=== PATIENT | female | born 1950 | race Caucasian/White ===

== ENCOUNTER → 2017-04-09 | Outpatient (CLI) | payer BC ==
--- NOTE | 2017-04-09 13:48 | MAMMOGRAPHY REPORT ---
BILATERAL DIGITAL SCREENING MAMMOGRAM WITH CAD: 04/09/2017 CLINICAL HISTORY: Routine screening. Patient has no complaints. TECHNIQUE: Bilateral CC and MLO views were obtained. Current study was also evaluated with a Compute r Aided Detection (CAD) system. COMPARISON: Comparison is made to exams dated: 06/05/2015 mammogram, 03/03/2014 mammogram - [facility], and 12/24/2007. BREAST COMPOSITION: There are scattered areas of fibroglandular density in both breasts. FINDINGS: There are stable benign-appearing punctate microcalcifications in the right breast. No new suspicious mass, architectural distortion or cluster of microcalcifications is seen. IMPRESSION: ACR BI-RADS CATEGORY 1: NEGATIVE There is no mammographic evidence of malignancy. A 1 year screening mammogram is recommended. The pa tient will receive written notification of the results. Approximately 10% of breast cancers are not detected with mammography. A negative mammographic report should not delay biopsy if a clinically suggestive mass is present. Charmaine Shoemaker M.D. ay/:04/09/2017 13:36:30 [employer] Observer: Carmen CHAPARRO(R)(Vane)(BD), [facility] letter sent: Normal 1/2 BI-RADS Code: ACR BI-RADS Category 1: Negative
== END | disposition home or self-care (01) ==
LOC: C.MAMM 12:54
PROVIDERS: ATTEND Family Medicine
DX: Z12.31 Encounter for screening mammogram for malignant neoplasm of breast (principal); M85.851 Other specified disorders of bone density and structure, right thigh; M85.852 Other specified disorders of bone density and structure, left thigh

== ENCOUNTER 2021-02-23 11:38 | Inpatient (IN) ==
--- NOTE | 2021-02-23 12:34 | XRay Report ---
XR ankle RT 2V, XR tibia fibula RT 2V HISTORY: 70 years-old Female Extremity Trama acute pain of the right lower leg and ankle status post fall COMPARISON: None TECHNIQUE: 2 views of the right tibia and fibula with 2 views of the right ankle FINDINGS: ANKLE: There is an acute obliquely oriented fracture of the distal tibial diaphysis which demonstrates 12 mm lateral andr 3 mm posterior displacement. Mild cortical thickening of the distal fibula may reflect a healed fracture. Mild to moderate soft tissue swelling. The ankle mortise is well-maintained. No os teochondral defect. There is mild midfoot and hindfoot osteoarthritis with small plantar enthesophyte of the calcaneus. TIBIA/fibula: There is an acute obliquely oriented fracture involving the proximal metadiaphyseal fibula demonstrat ing 5 mm medial and 3 mm volar displacement. Acute fracture of the distal tibia as above. No addition al acute fracture or dislocation. IMPRESSION: Acute mildly displaced distal tibial and proximal fractures as above. ACT 112: Negative or not required by law. The above report was generated using voice recognition software. It may contain grammatical, syntax o r spelling errors. Electronically signed by: Angel Garcia M.D. 02/23/2021 12:33 PM
--- NOTE | 2021-02-23 12:41 | Emergency Department Note ---
History of Present Illness General Chief complaint: Ankle Pain Time Seen by Provider: 02/23/21 12:03 Mode of arrival: ambulatory Limitations: no limitations History of Present Illness Provider complaint: Right ankle injury Onset (ago): hour(s) Location: lower extremity Radiation: non-radiation Severity: moderate Pain Consistency: + constant Maximum Pain Intensity: 7 Current Pain Intensity: 7 Quality: + constant Relieved By: + none Exacerbated By: + movement Associated symptoms: + denies other symptoms Treatments prior to arrival: none This is a 70-year female presents the emergency department after an ankle injury at home. Patient states she had gotten food and water for her cats, and some of the water spilled outside the dish and she slipped on the water and fell, landing awkwardly on her right lower extremity. Patient denies any prior injury to the right knee, tib/fib, or ankle. Patient states she was feeling in her usual state of health prior to this, no preceding or prodromal symptoms to suggest near syncope or syncope. Patient states when she fell she did not hit her head or lose consciousness. Patient states she crawled to the door and called 911. Patient denies any numbness or tingling, denies any neck pain, back pain, or hip pain. Patient denies any concern for additional injury other than that to her right lower extremity. Patient does not use any antiplatelet or anticoagulation therapy. Pt seen during a time of high acuity and national emergency pandemic while wearing PPE. Home Medications Medication Instructions Recorded Confirmed Type Skyrizi 75 mg SUBCUT DIRECTED 02/23/21 02/23/21 History levothyroxine 75 mcg PO DAILY 02/23/21 02/23/21 History lisinopril 40 mg PO DAILY 02/23/21 02/23/21 History acetaminophen [Tylenol Extra 1,000 mg PO TID 30 Days #180 tab 02/25/21 Rx Strength] aspirin 81 mg PO BID 30 Days #60 tab 02/25/21 Rx oxycodone 5 mg PO Q6H PRN #30 tab 02/25/21 Rx Allergies Allergy/AdvReac Type Severity Reaction Status Date / Time amlodipine [From [facility]] Allergy Unknown Verified 02/23/21 18:37 Sulfa (Sulfonamide Allergy Unknown Verified 02/23/21 18:36 Antibiotics) Past Med/Surg History Medical History Hypertension Psoriasis Thyroid dysfunction Social History Smoking Status: Former smoker Second Hand Exposure: No; Hx Alcohol Use: Yes Alcohol type: wine Hx Substance Use: No Preferred Language: Emirati Communication Ability: Effective Procurement Consultant Required: No Beliefs That Will Affect Care: None Current Living Situation: Alone Feels Safe at Home: No Is there a partner from a previous relationship who is making you feel unsafe now?: No Assistive Devices: Walker Review of Systems See HPI for pertinent positives & negatives. and A total of 6 systems reviewed and were otherwise negative Physical Exam Vital Signs Vital Signs - 24 hr 02/23/21 11:42 02/23/21 13:47 Temperature 36.8 C Temperature Source Oral Pulse Rate 87 Pulse Rate [Apical] 88 Respiratory Rate 18 18 Blood Pressure 177/80 H Blood Pressure Mean 112 Pulse Oximetry 96 98 Oxygen Delivery Method Room Air Sepsis Recent Fever Within 48 Hours No Sepsis New/Unexplained Change in Mental Status No Sepsis Action Taken by Nursing No Action Required GENERAL: alert, well appearing, well nourished, no distress, non-toxic EYE EXAM: normal conjunctiva, PERRL and EOM's grossly intact OROPHARYNX: no exudate, no erythema, lips, buccal mucosa, and tongue normal and mucous membranes are moist NECK: supple, no nuchal rigidity, no adenopathy, non-tender LUNGS: Clear to auscultation. Normal chest wall mechanics, no w/r/r HEART: no murmurs, S1 normal and S2 normal ABDOMEN: abdomen soft, non-tender, normo-active bowel sounds, no masses, no rebound or guarding. BACK: Back is symmetrical on inspection and there is no deformity, no midline tenderness, no CVA tenderness. SKIN: no rashes and no bruising UPPER EXTREMITIES: upper extremities are grossly normal. FROM, nml pulses b/l. LOWER EXTREMITIES: No pitting edema. FROM left lower extremity, right lower extremity with pain and swelling noted along the distal anterior aspect and proximally close to the fibular head, no joint effusions, sensation intact, no skin tenting, compartments soft, nml pulses b/l. NEURO EXAM: Normal sensorium, cranial nerves II-XII grossly intact, normal speech, no gross weakness of arms, no gross weakness of legs. Gross sensation i ntact. Course Course 1340: Discussed with Dr. Michaud. Patient updated. 1352: Discussed with Dr. Michaud again. Recommends admission and surgical repair. 1444: Case discussed with Dr. Dunn. Administered Medications Discontinued Medications Aspirin (Aspirin 81 Mg Ectab) 81 mg PO BID [facility] Stop: 03/26/21 20:59 Last Admin: 02/25/21 10:04 Dose: 81 mg Documented by: [id number] Admin: 02/24/21 20:53 Dose: 81 mg Documented by: [id number] Bupivacaine HCl/Epinephrine Bitart (Bupivacaine/Epinephrine 0.5% Mpf 1:200,000 30 Ml Vial) Confirm Administered Dose 30 ml .ROUTE .[facility] Stop: 02/24/21 08:10 Last Admin: 02/24/21 09:48 Dose: 30 ml Documented by: [id number] Docusate Sodium (Docusate Sodium 100 Mg Cap) 100 mg PO BID [facility] Stop: 03/26/21 20:59 Last Admin: 02/25/21 10:04 Dose: Not Given Documented by: [id number] Admin: 02/24/21 20:53 Dose: 100 mg Documented by: [id number] Sodium Chloride (Nss 1000ml) 1,000 mls @ 125 mls/hr IV .Q8H DIMITRY Stop: 03/25/21 14:29 Last Infusion: 02/23/21 19:10 Dose: 0 mls/hr Documented by: [id number] Admin: 02/23/21 15:23 Dose: 125 mls/hr Documented by: [id number] Sodium Chloride (Nss 1000ml) 1,000 mls @ 100 mls/hr IV .Q10H DIMITRY Stop: 02/24/21 13:12 Last Infusion: 02/24/21 20:05 Dose: 0 mls/hr Documented by: [id number] Infusion: 02/24/21 11:56 Dose: 0 mls/hr Documented by: [id number] Admin: 02/24/21 04:45 Dose: 100 mls/hr Documented by: [id number] Infusion: 02/24/21 04:29 Dose: 100 mls/hr Documented by: [id number] Admin: 02/23/21 18:29 Dose: 100 mls/hr Documented by: [id number] Cefazolin Sodium (Ancef 2000mg) 2,000 mg in 15 mls @ 3.75 mls/min IV PREOP DIMITRY Stop: 02/24/21 18:00 Last Admin: 02/24/21 08:18 Dose: 3.75 mls/min Documented by: [id number] Sodium Chloride (Nss 1000ml) 1,000 mls @ 100 mls/hr IV .Q10H DIMTIRY Stop: 02/25/21 06:00 Last Infusion: 02/25/21 05:35 Dose: 0 mls/hr Documented by: [id number] Admin: 02/24/21 16:49 Dose: 100 mls/hr Documented by: [id number] Infusion: 02/24/21 16:49 Dose: 100 mls/hr Documented by: [id number] Admin: 02/24/21 11:55 Dose: 100 mls/hr Documented by: [id number] Cefazolin Sodium (Ancef 1000mg) 1,000 mg in 7.5 mls @ 2.5 mls/min IV Q8H DIMITRY; Protocol Stop: 02/25/21 00:02 Last Admin: 02/25/21 00:29 Dose: 2.5 mls/min Documented by: [id number] Admin: 02/24/21 16:51 Dose: 2.5 mls/min Documented by: [id number] Ketorolac Tromethamine (Ketorolac Tromethamine 15 Mg/Ml Vial) 15 mg IV Q6H DIMITRY Stop: 02/26/21 06:01 Last Admin: 02/25/21 12:27 Dose: 15 mg Documented by: [id number] Admin: 02/25/21 05:42 Dose: 15 mg Documented by: [id number] Admin: 02/25/21 00:29 Dose: 15 mg Documented by: [id number] Admin: 02/24/21 19:34 Dose: 15 mg Documented by: [id number] Admin: 02/24/21 04:30 Dose: Not Given Documented by: [id number] Levothyroxine Sodium (Levothyroxine Sodium 75 Mcg Tablet) 75 mcg PO DAILYBB [facility] Stop: 03/26/21 06:29 Last Admin: 02/25/21 05:42 Dose: 75 mcg Documented by: [id number] Admin: 02/24/21 05:46 Dose: 75 mcg Documented by: [id number] Lisinopril (Lisinopril 20 Mg Tab) 20 mg PO DAILY DIMITRY Stop: 03/26/21 08:59 Last Admin: 02/24/21 11:35 Dose: 20 mg Documented by: [id number] Lisinopril (Lisinopril 40 Mg Tab) 40 mg PO DAILY [facility] Stop: 03/27/21 08:59 Last Admin: 02/25/21 10:04 Dose: 40 mg Documented by: [id number] Miscellaneous (Skyrizi: Order Awaiting Action) 1 ea N/A QS [facility] Stop: 03/26/21 15:59 Last Admin: 02/25/21 07:04 Dose: Not Given Documented by: [id number] Admin: 02/25/21 00:29 Dose: Not Given Documented by: [id number] Admin: 02/24/21 18:50 Dose: Not Given Documented by: [id number] Miscellaneous Information (Patient's Allergy Info Needs Entered) 1 ea N/A [facility] Stop: 02/23/21 17:43 Last Admin: 02/24/21 10:40 Dose: Not Given Documented by: [id number] Multivitamins (Multivitamin Tab) 1 tab PO QAM [facility] Stop: 03/27/21 08:59 Last Admin: 02/25/21 10:04 Dose: 1 tab Documented by: [id number] Oxycodone HCl (Oxycodone Hcl Ir 5 Mg Tab (Immediate Release)) 10 mg PO Q6H PRN PRN Reason: Moderate Pain Stop: 03/09/21 17:12 Last Admin: 02/23/21 18:32 Dose: 10 mg Documented by: [id number] Sennosides (Senna 8.6 Mg Tab) 17.2 mg PO HS [facility] Stop: 03/26/21 20:59 Last Admin: 02/24/21 20:53 Dose: 17.2 mg Documented by: [id number] Medical Decision Making Differential Diagnosis Fracture, subluxation, dislocation, contusion, ligamentous injury, neurovascular, compartment syndrome, rhabdomyolysis, as well as other patholog ies. Medical Records Attestation: I reviewed the patient's medical records. Home Medications Current Medication List: was personally reviewed by me Laboratory Data Attestation: I reviewed the patient's lab results. Result diagrams: 02/25/21 06:43 02/25/21 06:43 Lab Results 02/23/21 02/23/21 02/23/21 Range/Units 14:39 14:39 14:50 WBC 8.99 (4.8-10.8) K/uL RBC 4.66 (4.2-5.4) M/uL Hgb 16.3 H (12.0-16.0) g/dL Hct 45.0 (37-47) % MCV 96.6 (80-100) fL MCH 35.0 H (25-34) pg MCHC 36.2 H (32-36) g/dL RDW Std Deviation 44.1 (36.4-46.3) fL RDW Coeff of Anna 12.5 (11.5-14.5) % Plt Count 298 (130-400) K/uL MPV 9.5 (7.4-10.4) fL Immature Gran % (Auto) 0.2 % Neut % (Auto) 82.2 % Lymph % (Auto) 12.8 % [place] % (Auto) 4.4 % Eos % (Auto) 0.2 % Baso % (Auto) 0.2 % Neut # (Auto) 7.38 H (1.4-6.5) K/uL Lymph # (Auto) 1.15 L (1.2-3.4) K/uL [place] # (Auto) 0.40 (0.11-0.59) K/uL Eos # (Auto) 0.02 (0-0.5) K/uL Baso # (Auto) 0.02 (0-0.2) K/uL Immature Gran # (Auto) 0.02 (0.00-0.02) K/uL PT (9.0-12.0) Seconds INR (0.9-1.1) Sodium (136-145) mmol/L Potassium (3.5-5.1) mmol/L Chloride (98-107) mmol/L Carbon Dioxide (21-32) mmol/L Anion Gap (3-11) BUN (7-18) mg/dl Creatinine (0.6-1.2) mg/dl Est Cr Clr Drug Dosing ml/min Est GFR ( Amer) ml/min Est GFR (Non-Af Amer) ml/min BUN/Creatinine Ratio (10-20) Glucose (70-99) mg/dl Calcium (8.5-10.1) mg/dl Total Bilirubin (0.2-1) mg/dl AST (15-37) U/L ALT (12-78) U/L Alkaline Phosphatase (45-117) U/L Troponin I (0-0.045) ng/ml Total Protein (6.4-8.2) gm/dl Albumin (3.4-5.0) gm/dl Globulin (2.5-4.0) gm/dl Albumin/Globulin Ratio (0.9-2) TSH (0.300-4.500) uIu/ml COVID-19 Eval Order Covid19 at [facility] SARS-CoV-2 (PCR) NEGATIVE (Negative) 02/23/21 02/23/21 Range/Units 14:50 14:50 WBC (4.8-10.8) K/uL RBC (4.2-5.4) M/uL Hgb (12.0-16.0) g/dL Hct (37-47) % MCV (80-100) fL MCH (25-34) pg MCHC (32-36) g/dL RDW Std Deviation (36.4-46.3) fL RDW Coeff of Anna (11.5-14.5) % Plt Count (130-400) K/uL MPV (7.4-10.4) fL Immature Gran % (Auto) % Neut % (Auto) % Lymph % (Auto) % [place] % (Auto) % Eos % (Auto) % Baso % (Auto) % Neut # (Auto) (1.4-6.5) K/uL Lymph # (Auto) (1.2-3.4) K/uL [place] # (Auto) (0.11-0.59) K/uL Eos # (Auto) (0-0.5) K/uL Baso # (Auto) (0-0.2) K/uL Immature Gran # (Auto) (0.00-0.02) K/uL PT 10.5 (9.0-12.0) Seconds INR 1.0 (0.9-1.1) Sodium 135 L (136-145) mmol/L Potassium 4.5 (3.5-5.1) mmol/L Chloride 103 (98-107) mmol/L Carbon Dioxide 27 (21-32) mmol/L Anion Gap 5.0 (3-11) BUN 8 (7-18) mg/dl Creatinine 0.63 (0.6-1.2) mg/dl Est Cr Clr Drug Dosing 77.2 ml/min Est GFR ( Amer) 106.1 ml/min Est GFR (Non-Af Amer) 91.5 ml/min BUN/Creatinine Ratio 13.0 (10-20) Glucose 97 (70-99) mg/dl Calcium 9.6 (8.5-10.1) mg/dl Total Bilirubin 0.6 (0.2-1) mg/dl AST 74 H (15-37) U/L ALT 49 (12-78) U/L Alkaline Phosphatase 92 (45-117) U/L Troponin I < 0.015 (0-0.045) ng/ml Total Protein 8.5 H (6.4-8.2) gm/dl Albumin 3.9 (3.4-5.0) gm/dl Globulin 4.6 H (2.5-4.0) gm/dl Albumin/Globulin Ratio 0.9 (0.9-2) TSH 4.050 (0.300-4.500) uIu/ml COVID-19 Eval Order SARS-CoV-2 (PCR) (Negative) Imaging Data Radiologist's Impression: Ankle X-Ray 02/23/21 12:01 XR ankle RT 2V, XR tibia fibula RT 2V HISTORY: 70 years-old Female Extremity Trama acute pain of the right lower leg and ankle status post fall COMPARISON: None TECHNIQUE: 2 views of the right tibia and fibula with 2 views of the right ankle FINDINGS: ANKLE: There is an acute obliquely oriented fracture of the distal tibial diaphysis which demonstrates 12 mm lateral andr 3 mm posterior displacement. Mild cortical thickening of the distal fibula may reflect a healed fracture. Mild to moderate soft tissue swelling. The ankle mortise is well-maintained. No osteochondral defect. There is mild midfoot and hindfoot osteoarthritis with small plantar enthesophyte of the calcaneus. TIBIA/fibula: There is an acute obliquely oriented fracture involving the proximal metadiaphyseal fibula demonstrating 5 mm medial and 3 mm volar displacement. Acute fracture of the distal tibia as above. No additional acute fracture or dislocation. IMPRESSION: Acute mildly displaced distal tibial and proximal fractures as above. ACT 112: Negative or not required by law. The above report was generated using voice recognition software. It may contain grammatical, syntax or spelling errors. Electronically signed by: Angel Garcia M.D. 02/23/2021 12:33 PM Tibia/Fibula X-Ray 02/23/21 12:01 XR ankle RT 2V, XR tibia fibula RT 2V HISTORY: 70 years-old Female Extremity Trama acute pain of the right lower leg and ankle status post fall COMPARISON: None TECHNIQUE: 2 views of the right tibia and fibula with 2 views of the right ankle FINDINGS: ANKLE: There is an acute obliquely oriented fracture of the distal tibial diaphysis which demonstrates 12 mm lateral andr 3 mm posterior displacement. Mild cortical thickening of the distal fibula may reflect a healed fracture. Mild to moderate soft tissue swelling. The ankle mortise is well-maintained. No osteochondral defect. There is mild midfoot and hindfoot osteoarthritis with small plantar e nthesophyte of the calcaneus. TIBIA/fibula: There is an acute obliquely oriented fracture involving the proximal metadiaphyseal fibula demonstrating 5 mm medial and 3 mm volar displacement. Acute fracture of the distal tibia as above. No additional acute fracture or dislocation. IMPRESSION: Acute mildly displaced distal tibial and proximal fractures as above. ACT 112: Negative or not required by law. The above report was generated using voice recognition software. It may contain grammatical, syntax or spelling errors. Electronically signed by: Angel Garcia M.D. 02/23/2021 12:33 PM Chest X-Ray 02/23/21 14:11 XR chest 1V portable HISTORY: 70 years-old Female pre op acute fractures of the right lower extremity COMPARISON: None TECHNIQUE: Portable AP view of the chest FINDINGS: Cardiomediastinal and hilar silhouettes are within normal limits. Calcified plaque of the thoracic aorta. No pneumothorax, pleural effusion, airspace consolidation or overt pulmonary edema. Mid thoracic dextroscoliosis. Degener ative changes of the shoulders and spine. IMPRESSION: No acute process. ACT 112: Negative or not required by law. The above report was generated using voice recognition software. It may contain grammatical, syntax or spelling errors. Electronically signed by: Angel Garcia M.D. 02/23/2021 2:26 PM ECG Data Attestation: I personally reviewed and interpreted this ECG as follows: Indication: + other Rate (beats per minute): 85 Rhythm: + normal sinus ECG Intervals/blocks: + Normal QRS and + Normal QT ECG [place]: + Normal ECG ST segments: + Normal ST segments MDM Narrative Patient presents after an accidental fall at home with isolated extremity trauma. VS stable. Xrays performed and pt found to have fractures to both tibia and fibula. I do not suspect syncopal event or other preceeding symptoms to cause a fall. Pt not on antiplatelet or anticoagulation therapy. Pt made aware or results. 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 CAse discussed with hospitalist. Pt splinted per ortho recs. I have a low suspicion for any additional occult traumatic injury. Patient verbalized understanding of all results and was in agreement with the plan. An order was placed for continuous cardiac monitoring. The monitor shows a rate of _80__ with _normal sinus rhythm. Impression & Plan Fracture tibia/fibula, Hypertension Discharge Plan Visit Data Chief Complaint: Ankle Pain ED Provider: Doreen Frey Discharge Problem: Fracture tibia/fibula, Hypertension Patient Disposition: Admitted As Inpatient Discharge Instructions Interventions: ED Discharge Assessment Last Done: 02/23/21 16:42 Discharge Problem: Fracture tibia/fibula Qualifiers: Encounter type: initial encounter Fracture type: closed Laterality: right Qualified Code(s): S82.201A - Unspecified fracture of shaft of right tibia, initial encounter for closed fracture Hypertension Qualifiers: Hypertension type: essential hypertension Qualified Code(s): I10 - Essential (primary) hypertension
[2021-02-23] MEDS ORDERED: MoRPHine SULFATE 4 MG/ML 1 ML CARP\\VIAL IV PRN ×2 (14:11→17:13)
--- NOTE | 2021-02-23 14:28 | XRay Report ---
XR chest 1V portable HISTORY: 70 years-old Female pre op acute fractures of the right lower extremity COMPARISON: None TECHNIQUE: Portable AP view of the chest FINDINGS: Cardiomediastinal and hilar silhouettes are within normal limits. Calcified plaque of the thoracic ao rta. No pneumothorax, pleural effusion, airspace consolidation or overt pulmonary edema. Mid thoracic dextroscoliosis. Degenerative changes of the shoulders and spine. IMPRESSION: No acute process. ACT 112: Negative or not required by law. The above report was generated using voice recognition software. It may contain grammatical, syntax o r spelling errors. Electronically signed by: Angel Garcia M.D. 02/23/2021 2:26 PM
[2021-02-23] MEDS ORDERED: SODIUM CHLORIDE 0.9% 1000ML 1,000 ML IV SCH (14:30)
[2021-02-23 15:11] LABS: Basophils # (auto) 0.02 K/uL (0-0.2); Basophils % (auto) 0.2 %; Eosinophils # (auto) 0.02 K/uL (0-0.5); Eosinophils % (auto) 0.2 %; Hemoglobin 16.3 g/dL (12.0-16.0); Immature Granulocytes # (auto) 0.02 K/uL (0.00-0.02); Immature Granulocytes % (auto) 0.2 %; Lymphocytes # (auto) 1.15 K/uL (1.2-3.4); Lymphocytes % (auto) 12.8 %; Mean Corpuscular Hgb Conc 36.2 g/dL (32-36); Mean Corpuscular Volume 96.6 fL (80-100); Mean Platelet Volume 9.5 fL (7.4-10.4); Monocytes % (auto) 4.4 %; Neutrophils # (auto) 7.38 K/uL (1.4-6.5); Neutrophils % (auto) 82.2 %; Platelet Count 298 K/uL (130-400); RDW Coefficient of Variation 12.5 % (11.5-14.5); RDW Standard Deviation 44.1 fL (36.4-46.3); Red Blood Count 4.66 M/uL (4.2-5.4); White Blood Count 8.99 K/uL (4.8-10.8)
[2021-02-23 15:21] LABS: Prothrombin Time 10.5 Seconds (9.0-12.0)
--- NOTE | 2021-02-23 15:30 | History & Physical Report ---
Date of Service February 23, 2021 Assessment & Plan (1) Fracture tibia/fibula: Mechanical fall with a tib-fib fracture in the right. Orthopedics, Dr. Michaud, was consulted recommends inpatient stay for possible surgical correction. At this point time the timing of surgery is unclear to me we will keep the patient n.p.o. until evaluated by Dr. Michaud. Be hydrated with intravenous fluids Preoperative Covid test is negative (2) Hypertension: Patient typically takes lisinopril 40 mg a day for hypertension. If undergoing surgery will reduce this dose to 50% the following day and have as needed blood pressure medications available. (3) Thyroid dysfunction: Patient Synthroid 75 mcg will be continued at this point time TSH is pending (4) Psoriasis: Patient typically takes greasy for psoriasis this will be held (5) DVT prophylaxis: Preop DVT prevention will be only SCDs on the unaffected leg and then postoperatively with surgical preference History of Present Illness Primary Care Provider: Jai Curry MD 70-year female presents the emergency department after an ankle injury at home. Patient states she had gotten food and water for her cats, and some of the water spilled outside the dish and she slipped on the water and fell, landing awkw ardly on her right lower extremity. Patient denies any prior injury to the right knee, tib/fib, or ankle. Patient states she was feeling in her usual state of health prior to this, no preceding or prodromal symptoms to suggest near syncope or syncope. Patient states when she fell she did not hit her head or lose consciousness. Patient states she crawled to the door and called 911. Patient denies any numbness or tingling, denies any neck pain, back pain, or hip pain. Patient denies any concern for additional injury other than that to her right lower extremity. Patient does not use any antiplatelet or anticoagulation therapy. Patient has tib-fib fracture of right lower extremity. Orthopedics was consulted emergency department recommended to be kept in the facility for surgical correction. Allergies Allergy/AdvReac Type Severity Reaction Status Date / Time amlodipine [From [facility]] Allergy Unknown Verified 02/23/21 18:37 Sulfa (Sulfonamide Allergy Unknown Verified 02/23/21 18:36 Antibiotics) Home Medications Medication Instructions Recorded Confirmed Type levothyroxine 75 mcg PO DAILY 02/23/21 02/23/21 History lisinopril 40 mg PO DAILY 02/23/21 02/23/21 History risankizumab-rzaa [Skyrizi] 75 mg SUBCUT DIRECTED 02/23/21 02/23/21 History Past Med/Surg History Medical History Hypertension Psoriasis Thyroid dysfunction Social History Smoking Status: Former smoker Second Hand Exposure: No; Do You Dip or Chew Tobacco: No; Tobacco Cessation Education Requested by Patient: No Hx Alcohol Use: Yes Alcohol type: wine Hx Substance Use: No Communication Ability: Effective Safety And Security Officer Required: No Beliefs That Will Affect Care: None Current Living Situation: Alone Other Information That Helps Us Care for You: No Feels Safe at Home: No Is there a partner from a previous relationship who is making you feel unsafe now?: No Any Concerns about Your Family Situation: No Would You Like to Speak to Someone About Your Situation: No Safety Concerns: Feels Safe At This Time Assistive Devices: Glasses Review of Systems Review of Systems: Mild distress and fatigue no headache, blurry or double vision no speech or swallowing issues no chest pain, pressure or palpitations no shortness of breath, cough or wheezes no abdominal pain, nausea or vomiting, diarrhea or constipation no dysuria, hematuria or frequency Right distal lower extremity pain ecchymosis no back pain, CVA tenderness or radicular pain no bruising, bleeding or rashes no focal signs of weakness or numbness or altered sensation no complaints of anxiety or depression.. Physical Exam Physical Exam: The patient appeared well nourished and normally developed. Vital signs as documented. Head exam is normocephalic atraumatic Neck is without JVD, thyromegaly, or carotid bruits. Lungs are clear to auscultation, no focal loss of breath sounds Cardiac exam, Rhythm is regular.. No murmurs, rubs or gallops. Abdominal exam reveals normal bowel sounds, soft non tender, no masses Lower extremity deformity distal pulses sensation intact she has got some swelling and ecchymosis Neurologic exam is alert and oriented, no focal loss of strength or sensation Skin is without bruises or rashes Psychologically is without concerns for anxiety or depression Results & Data Results & Data ([facility]) Vital Signs (Past 12 Hours) Vital Signs Temp Pulse Pulse Resp BP Pulse Ox 02/23/21 15:00 89 17 151/104 H 02/23/21 14:46 89 23 02/23/21 14:33 90 20 169/81 H 02/23/21 13:47 88 18 98 98.2 F 87 18 177/80 H 96 Ankle X-Ray 02/23/21 12:01 XR ankle RT 2V, XR tibia fibula RT 2V HISTORY: 70 years-old Female Extremity Trama acute pain of the right lower leg and ankle status post fall COMPARISON: None TECHNIQUE: 2 views of the right tibia and fibula with 2 views of the right ankle FINDINGS: ANKLE: There is an acute obliquely oriented fracture of the distal tibial diaphysis which demonstrates 12 mm lateral andr 3 mm posterior displacement. Mild cortical thickening of the distal fibula may reflect a healed fracture. Mild to moderate soft tissue swelling. The ankle mortise is well-maintained. No osteochondral defect. There is mild midfoot and hindfoot osteoarthritis with small plantar enthesophyte of the calcaneus. TIBIA/fibula: There is an acute obliquely oriented fracture involving the proximal metadiaphyseal fibula demonstrating 5 mm medial and 3 mm volar displacement. Acute fracture of the distal tibia as above. No additional acute fracture or dislocation. IMPRESSION: Acute mildly displaced distal tibial and proximal fractures as above. Electronically signed by: Angel Garcia M.D. 02/23/2021 12:33 PM Tibia/Fibula X-Ray 02/23/21 12:01 XR ankle RT 2V, XR tibia fibula RT 2V HISTORY: 70 years-old Female Extremity Trama acute pain of the right lower leg and ankle status post fall COMPARISON: None TECHNIQUE: 2 views of the right tibia and fibula with 2 views of the right ankle FINDINGS: ANKLE: There is an acute obliquely oriented fracture of the distal tibial diaphysis which demonstrates 12 mm lateral andr 3 mm posterior displacement. Mild cortical thickening of the distal fibula may reflect a healed fracture. Mild to moderate soft tissue swelling. The ankle mortise is well-maintained. No osteochondral defect. There is mild midfoot and hindfoot osteoarthritis with small plantar enthesophyte of the calcaneus. TIBIA/fibula: There is an acute obliquely oriented fracture involving the proximal metadiaphys eal fibula demonstrating 5 mm medial and 3 mm volar displacement. Acute fracture of the distal tibia as above. No additional acute fracture or dislocation. IMPRESSION: Acute mildly displaced distal tibial and proximal fractures as above. Electronically signed by: Angel Garcia M.D. 02/23/2021 12:33 PM Chest X-Ray 02/23/21 14:11 XR chest 1V portable HISTORY: 70 years-old Female pre op acute fractures of the right lower extremity COMPARISON: None TECHNIQUE: Portable AP view of the chest FINDINGS: Cardiomediastinal and hilar silhouettes are within normal limits. Calcified plaque of the thoracic aorta. No pneumothorax, pleural effusion, airspace consolidation or overt pulmonary edema. Mid thoracic dextroscoliosis. Degenerative changes of the shoulders and spine. IMPRESSION: No acute process. Electronically signed by: Angel Garcia M.D. 02/23/2021 2:26 PM EKG shows normal sinus rhythm without ST or T wave changes PG Care Time/CCT Total # of Minutes Spent Total Time Spent with Patient: Total time spent is greater than 50% in coordination of care (as documented) at patient's floor/unit and/or counseling patient: Coding Level of Care Code 07663 Initial Inpt Care Lvl 2 Diagnoses Fracture tibia/fibula S82.209A; S82.409A Hypertension I10 Thyroid dysfunction E07.9 Psoriasis L40.9 DVT prophylaxis Z29.9
[2021-02-23 15:34] LABS: Alanine Aminotransferase 49 U/L (12-78); Albumin Level 3.9 gm/dl (3.4-5.0); Aspartate Aminotransferase 74 U/L (15-37); Blood Urea Nitrogen 8 mg/dl (7-18); Calcium 9.6 mg/dl (8.5-10.1); Carbon Dioxide 27 mmol/L (21-32); Chloride 103 mmol/L (98-107); Creatinine Clr Calc Pharmacy 77.2 ml/min; Est GFR (African American) 106.1 ml/min; Est GFR (Non-African American) 91.5 ml/min; Glucose 97 mg/dl (70-99); Potassium 4.5 mmol/L (3.5-5.1); Sodium 135 mmol/L (136-145)
[2021-02-23 15:45] LABS: Albumin Globulin Ratio 0.9 (0.9-2); Alkaline Phosphatase 92 U/L (45-117); Bilirubin,Total 0.6 mg/dl (0.2-1); Globulin 4.6 gm/dl (2.5-4.0); Total Protein 8.5 gm/dl (6.4-8.2); Troponin I < 0.015 ng/ml (0-0.045)
[2021-02-23] MEDS ORDERED: ALUMINUM/MAGNESIUM SUSP 30 ML UDC PO PRN (17:13)
[2021-02-23] MEDS ORDERED: ONDANSETRON INJ 2 MG/ML 2 ML VIAL IV PRN (17:13)
[2021-02-23] MEDS ORDERED: MoRPHine SULFATE 2 MG/ML CARP IV PRN (17:13)
[2021-02-23] MEDS ORDERED: ACETAMINOPHEN 325 MG TAB PO PRN (17:13)
[2021-02-23] MEDS ORDERED: oxyCODONE HCL IR 5 MG TAB (IMMEDIATE RELEASE) PO PRN (17:13)
[2021-02-23] MEDS ORDERED: MAGNESIUM HYDROXIDE SUSP 30 ML UDC PO PRN (17:13)
[2021-02-23] MEDS ORDERED: LORazepam 0.5 MG TAB PO PRN (17:13)
[2021-02-23] MEDS ORDERED: hydrALAZINE HCL 20 MG/ML VIAL IV PRN (17:13)
[2021-02-23] MEDS ORDERED: PATIENT'S ALLERGY INFO NEEDS ENTERED STA (17:42)
--- NOTE | 2021-02-23 18:13 | Orthopedic Consultation ---
Date of Service February 23, 2021 Assessment & Plan (1) Fracture tibia/fibula: We discussed treatment plans. We discussed treatment options. Options include casting versus open reduction internal fixation or IM nailing. This amount of displacement I think surgical treatment is most appropriate. Concerning the distal nature of this fracture I think plate fixation is the most predictable and she is best served by this. We discussed this option she would like to proceed. We will proceed with open reduction internal fixation of a right distal tibia fracture tomorrow morning. The risks med this procedure explained the patient include but not limited to DVT PE infection neurological and vascular bleeding palm pain limb range of motion this is fairly her symptoms nonunion malunion need for hardware removal etc. Patient understands and desires to proceed. Informed consent is obtained. She has been admitted by the medicine service. She is medically optimized. We will keep her n.p.o. after midnight. DVT prophylaxis will be teds and aspirin. History of Present Illness Reason for Consultation: . Right tib-fib fracture. Requesting Physician: . Attending Physician: Dylan Dunn MD . Patient is a 70-year-old relatively healthy female who sustained a fall earlier today. She was apparently femur CAT scan some of the water spilled. She slipped in the water and twisted her right ankle. Acute onset of pain. She was brought to the emergency room by EMS. X-rays were displaced distal left tib-fib fracture. She has been admitted by the hospitalist service and we are consulted for evaluation. She lives by herself. No pre-existing leg pain or problems. Allergies Allergy/AdvReac Type Severity Reaction Status Date / Time No Known Allergies Allergy Verified 02/23/21 18:10 Home Medications Medication Instructions Recorded Confirmed Type levothyroxine 75 mcg PO DAILY 02/23/21 02/23/21 History lisinopril 40 mg PO DAILY 02/23/21 02/23/21 History risankizumab-rzaa [Skyrizi] 75 mg SUBCUT DIRECTED 02/23/21 02/23/21 History Past Med/Surg History Medical History Hypertension Psoriasis Thyroid dysfunction Social History Smoking Status: Former smoker Second Hand Exposure: No; Do You Dip or Chew Tobacco: No; Tobacco Cessation Education Requested by Patient: No Hx Alcohol Use: Yes Alcohol type: wine Hx Substance Use: No Communication Ability: Effective Flumer Required: No Beliefs That Will Affect Care: None Current Living Situation: Alone Other Information That Helps Us Care for You: No Feels Safe at Home: No Is there a partner from a previous relationship who is making you feel unsafe now?: No Any Concerns about Your Family Situation: No Would You Like to Speak to Someone About Your Situation: No Safety Concerns: Feels Safe At This Time Assistive Devices: Glasses Review of Systems All systems reviewed & are unremarkable except as noted in HPI & below. Physical Exam . Physical examination reveals a pleasant middle-aged female. She is lying in bed looks reasonably comfortable. General musculoskeletal exam reveals a painless and full range of motion of her cervical thoracic and lumbar spine. She got no pain or discomfort or dysfunction of her upper extremities or left lower extremity. Examination of the right lower extremity reveals a splint to be in place. Leg looks well aligned. She can flex extend her toes appropriately. She is neurologically intact. No pain with passive motion. Results & Data Results & Data Laboratory Results . Diagnostic Findings . X-rays of the right leg and ankle reveal a displaced distal tibia fracture with a proximal fibular fracture. He has had an oblique fracture with centimeter and half displacement. PG Care Time/CCT Total # of Minutes Spent Total Time Spent with Patient: Total time spent is greater than 50% in coordination of care (as documented) at patient's floor/unit and/or counseling patient: Coding Level of Care Code 14767 Inpt Consult Level 5 Diagnoses Fracture tibia/fibula S82.209A; S82.409A
[2021-02-23] MEDS: SODIUM CHLORIDE 0.9% 1000ML 1,000 ML IV SCH (18:29)
[2021-02-24] MEDS: KETOROLAC TROMETHAMINE 15 MG/ML VIAL IV SCH ×2 (04:30→19:34)
[2021-02-24] MEDS: SODIUM CHLORIDE 0.9% 1000ML 1,000 ML IV SCH ×3 (04:45→16:49)
[2021-02-24] MEDS: LEVOTHYROXINE SODIUM 75 MCG TABLET PO SCH (05:46)
[2021-02-24] MEDS ORDERED: ceFAZolin 2000MG 2,000 MG/15 ML SYR IV SCH (06:00)
--- NOTE | 2021-02-24 06:27 | Electrocardiogram Report ---
Test Reason : Blood Pressure : / mmHG Vent. Rate : 085 BPM Atrial Rate : 085 BPM P-R Int : 148 ms QRS Dur : 076 ms QT Int : 376 ms P-R-T Axes : 064 002 027 degrees QTc Int : 447 ms Normal sinus rhythm Normal ECG No previous ECGs available Confirmed by Talha Vasquez ([id number]) on 02/24/2021 6:26:52 AM Referred By: REFERRED SELF Confirmed By:Talha Vasquez
[2021-02-24] MEDS ORDERED: MIDAZOLAM HCL 1 MG/ML 2ML VIAL ONE (07:00)
[2021-02-24] MEDS ORDERED: fentaNYL citrate 100 MCG/2 ML VIAL ONE ×2 (07:00→10:15)
--- NOTE | 2021-02-24 07:38 | Anesthesiology Consultation ---
Date of Service February 24, 2021 Assessment & Plan (1) Encounter for pre-operative examination: Chart Review Chart Review: Acceptable Risk for Surgery and Patient NOT seen in Pre Admission Testing Consults Requested none History Surgery Operation Date: 02/24/21 08:00 Proposed Procedures p Open Reduction Internal Fixation Ankle - Amado Michaud MD Height/Weight Height: 5 ft 2 in Weight: 70 kg Allergies Allergy/AdvReac Type Severity Reaction Status Date / Time amlodipine [From [facility]] Allergy Unknown Verified 02/23/21 18:37 Sulfa (Sulfonamide Allergy Unknown Verified 02/23/21 18:36 Antibiotics) Medications Home Medications Medication Instructions Recorded Confirmed Last Taken levothyroxine 75 mcg PO DAILY 02/23/21 02/23/21 Unknown lisinopril 40 mg PO DAILY 02/23/21 02/23/21 Unknown risankizumab-rzaa [Skyrizi] 75 mg SUBCUT DIRECTED 02/23/21 02/23/21 Unknown Active Medications Generic Name Dose Route Start Last Admin Trade Name Freq PRN Reason Stop Dose Admin Sodium Chloride 1,000 mls @ 100 mls/hr 02/23/21 17:13 02/24/21 04:45 Nss 1000ml IV 02/24/21 13:12 100 mls/hr .Q10H DIMITRY Administration Levothyroxine Sodium 75 mcg 02/24/21 06:30 02/24/21 05:46 Levothyroxine Sodium 75 Mcg Tablet PO 03/26/21 06:29 75 mcg DAILYBB DIMITRY Administration Oxycodone HCl 10 mg 02/23/21 17:13 02/23/21 18:32 Oxycodone Hcl Ir 5 Mg Tab (Immediate Release) PO 03/09/21 17:12 10 mg Q6H PRN Administration Moderate Pain NPO Date Last Intake of Fluids: 02/23/21 Time Last Intake of Fluids: 23:45 Past Medical History Medical History Hypertension Psoriasis Thyroid dysfunction Social History Smoking Status: Former smoker tobacco type: cigarettes Do You Dip or Chew Tobacco: No Hx Alcohol Use: Yes Alcohol type: wine alcohol intake frequency: 0-2 drinks per day Hx Substance Use: No Physical Exam Vital Signs Last Vital Signs Temp 36.8 C 02/24/21 07:17 Pulse 75 02/24/21 07:17 Resp 18 02/24/21 07:17 BP 166/80 H 02/24/21 07:17 Pulse Ox 96 02/24/21 07:17 Testing Laboratory Results PT 10.5 Seconds (9.0-12.0) 02/23/21 14:50 INR 1.0 (0.9-1.1) 02/23/21 14:50 Electrocardiogram Date: 02/23/21 Findings: + NSR @ (85) Chest X-Ray Date: 02/23/21 XR chest 1V portable HISTORY: 70 years-old Female pre op acute fractures of the right lower extremity COMPARISON: None TECHNIQUE: Portable AP view of the chest FINDINGS: Cardiomediastinal and hilar silhouettes are within normal limits. Calcified plaque of the thoracic aorta. No pneumothorax, pleural effusion, airspace consolidation or overt pulmonary edema. Mid thoracic dextroscoliosis. Degenerative changes of the shoulders and spine. IMPRESSION: No acute process. ACT 112: Negative or not required by law. The above report was generated using voice recognition software. It may contain grammatical, syntax or spelling errors. Electronically signed by: Angel Garcia M.D. 02/23/2021 2:26 PM Dictated: 02/23/21 1425Transcribed: 02/23/21 1425
--- NOTE | 2021-02-24 07:40 | History & Physical Bridge Note ---
Date of Service February 24, 2021 History & Physical Bridge Note I have examined the patient, reviewed the History & Physical and in the interval since the performance of the History & Physical I have noted the following changes of clinical significance: no changes noted
[2021-02-24 07:44] LABS: Hemoglobin 13.2 g/dL (12.0-16.0); Mean Corpuscular Hemoglobin 34.1 pg (25-34); Mean Corpuscular Hgb Conc 34.7 g/dL (32-36); Mean Corpuscular Volume 98.2 fL (80-100); Mean Platelet Volume 9.3 fL (7.4-10.4); Platelet Count 239 K/uL (130-400); RDW Coefficient of Variation 12.7 % (11.5-14.5); RDW Standard Deviation 45.4 fL (36.4-46.3); Red Blood Count 3.87 M/uL (4.2-5.4); White Blood Count 5.11 K/uL (4.8-10.8)
[2021-02-24 08:08] LABS: BUN Creatinine Ratio 15.8 (10-20); Calcium 8.3 mg/dl (8.5-10.1); Creatinine Clr Calc Pharmacy 101.4 ml/min; Est GFR (Non-African American) 100.1 ml/min; Potassium 3.7 mmol/L (3.5-5.1)
[2021-02-24] MEDS ORDERED: BUPIVACAINE/EPINEPHRINE 0.5% MPF 1:200,000 30 ML VIAL ONE (08:09)
[2021-02-24] MEDS ORDERED: ATROPINE SULFATE 0.1 MG/ML 10ML SYR IV PRN (08:12)
[2021-02-24] MEDS ORDERED: fentaNYL citrate 100 MCG/2 ML VIAL IV PRN (08:12)
[2021-02-24] MEDS ORDERED: ePHEDrine sulfate 50 MG/ML AMP IV PRN (08:12)
[2021-02-24] MEDS ORDERED: LABETALOL HCL IV 5 MG/ML 20ML IV PRN (08:12)
[2021-02-24] MEDS ORDERED: PHENYLEPHRINE 100MCG/ML 5ML SYR IV PRN (08:12)
[2021-02-24] MEDS ORDERED: HYDROmorphone INJ 1 MG/ML SYRINGE IV PRN (08:12)
[2021-02-24] MEDS ORDERED: MEPERIDINE HCL 25 MG/ML CARP/VIAL IV PRN (08:12)
[2021-02-24] MEDS ORDERED: ONDANSETRON INJ 2 MG/ML 2 ML VIAL IV PRN ×2 (08:12→10:33)
[2021-02-24] MEDS ORDERED: DEXAMETHASONE SOD INJ 4 MG/ML VIAL ONE (08:14)
[2021-02-24] MEDS ORDERED: ONDANSETRON INJ 2 MG/ML 2 ML VIAL ONE ×2 (08:14→08:21)
[2021-02-24] MEDS ORDERED: PROPOFOL IV EMULSION 10 MG/ML 20 ML VIAL IV ONE (08:33)
[2021-02-24] MEDS ORDERED: KETOROLAC 30 MG/ML VIAL ONE (08:33)
[2021-02-24] MEDS ORDERED: LIDOCAINE 2% 2 ML VIAL/AMP(20MG/ML) INFIL ONE (08:33)
[2021-02-24] MEDS ORDERED: ePHEDrine sulfate 50 MG/ML AMP ONE (08:58)
[2021-02-24] MEDS ORDERED: SODIUM CHLORIDE 0.9% INJ 10 ML VIAL ONE (08:58)
[2021-02-24] MEDS ORDERED: lisinopril 20 MG TAB PO SCH (09:00)
--- NOTE | 2021-02-24 10:02 | Fluoroscopy Report ---
FL ankle RT 2V CLINICAL HISTORY: ORIF RT DISTAL TIB/FIB COMPARISON STUDY: Right tibia/fibula 02/23/2021. FLUOROSCOPY TIME: 24 seconds. FINDINGS: A single fluoroscopic spot image of the right lower leg demonstrate internal fixation of th e distal tibial fracture with a lateral cortical plate transfixed with screws. The hardware appears i ntact. The alignment is near-anatomic. IMPRESSION: Fluoroscopy provided for internal fixation of a distal left tibial fracture. The hardware appears intact. ACT 112: Negative or not required by law. Electronically signed by: Franklyn Alba M.D. 02/24/2021 10:00 AM
[2021-02-24] MEDS ORDERED: ALUMINUM/MAGNESIUM SUSP 30 ML UDC PO PRN (10:33)
[2021-02-24] MEDS ORDERED: HYDROmorphone INJ 0.5 MG/0.5 ML SYR IV PRN (10:33)
[2021-02-24] MEDS ORDERED: METOCLOPRAMIDE HCL INJ 5 MG/ML 2 ML VIAL IV PRN (10:33)
[2021-02-24] MEDS ORDERED: bisacodyL 10 MG SUPP PR PRN (10:33)
[2021-02-24] MEDS ORDERED: MAGNESIUM HYDROXIDE SUSP 30 ML UDC PO PRN (10:33)
[2021-02-24] MEDS ORDERED: oxyCODONE HCL IR 5 MG TAB (IMMEDIATE RELEASE) PO PRN (10:33)
[2021-02-24] MEDS ORDERED: NALOXONE HCL 0.4 MG/1 ML VIAL/CARP IV PRN (10:33)
--- NOTE | 2021-02-24 10:38 | Operative Report ---
Post Operative Report Pre & Post Diagnosis Operation Date: 02/24/21 08:00 Pre-Op Diagnosis: Fracture tibia/fibula, right Post-Op Diagnosis: Fracture tibia/fibula, right I identified the patient and participated in the time-out.: Yes Procedure Operation Date: 02/24/21 08:00 Actual Procedures p Open Reduction Internal Fixation Right Tibia Fracture(Right) - Amado Michaud MD Surgeon Amado Michaud MD Teletype Installer Robb Garcia PA-C Estimated Blood Loss 30 Findings Consistent with Post-Op Diagnosis Fluids 1000 cc Specimens None Complications none Disposition Accompanied Patient To Recovery: No Disposition: Recovery Room Indications Patient is a 70-year-old fairly healthy female sustained an injury to her right leg yesterday when she slipped on some water. She had a twisting injury to her foot. She had a displaced tibia fracture with a proximal fibula fracture. She was made to the hospital and indicated for surgical treatment. Based on the distal nature of the fracture as well as a very narrow canal and small bone I elected proceed with open reduction internal fixation as opposed to IM nailing. I felt this was the most appropriate fixation for her. Description of Procedure Operative implants consist of: 1. Synthes right 11 hole anterior lateral distal left tibial locking plate. 2. 3.5 cortical lag screws x2. 3. 3.5 fully threaded cortical screws placed through the plate x2. 4. 4.0 fully threaded cancellous screw x1. 5. 3.5 fully threaded cortical locking screw x9. The patient was taken the operating, identified, placed on the operating table supine position but all contractors were properly padded. IV antibiotics 5 by anesthesia team. A general anesthetic was employed by anesthesia team. Right factor was then placed. The right lower extremity splint was then removed. The leg was scrubbed with Hibiclens, prepped with ChloraPrep and draped in usual sterile fashion. An anterolateral approach to the distal tibia was then performed to longitudinal and slightly curvilinear incision beginning 1 cm off the lateral border the crest of the tibia and extending distally and then just medial to the anterior tibialis tendon. Sharp passes Through subcutaneous tissues down to the fascia. The fascia to the anterior compartment was opened. Great care was taken to protect the superficial branch of the peroneal nerve. This was identified and retracted laterally. The fracture was easily visualized. We did have to release some the tissues off the anterior lateral distal tibia. The fracture was anatomically reduced and fixed with two 3.5 bicortical screws placed in a lag fashion. An anterior lateral locking plate was then selected. It was fixed distally with a single 4.0 fully threaded cancellous screw to snug it down to the bone and then to a 3.5 cortical screws proximally. We then filled the remaining the holes distally with a 3.5 locking screws in the proximal holes with a 3.5 locking screws. X-rays brought in. Some final x-rays were obtained. The fracture is anatomically reduced. All hardware is appropriately positioned. I then irrigated extensively. I injected locally with 30 cc of half percent Marcaine with epinephrine. The tourniquet was let down for turn time 59 minutes. Hemostasis assured use electrocautery. The extensor retinaculum distally was then closed with 0 Vicryl suture in a [id number] fashion. The anterior compartment fascia was loosely approximated with 2-0 Vicryl suture in a [id number] fashion. The subcutaneous tissue was then closed with 2-0 Vicryl suture in buried fashion skin was closed with 3-0 nylon suture in a simple fashion. The leg was then cleaned and dried a sterile dressing both Xeroform, 4 x 4's, sterile cast padding and a well-padded posterior and stirrup splint were applied. Patient then brought out of general anesthesia and transferred to the recovery room in stable condition. The patient tolerated procedure well and there were no complications. Robb Garcia, my physician tourist information assistant, was present for the entire procedure. His assistance was required for proper patient positioning, prepping and dr boswell, surgical exposure, retraction, perform the technical details of the operation, fixation the tibia, closure of the wound, placing the sterile bandage. I attest to the content of the Intraoperative Record and any orders documented therein. Any exceptions are noted below.
--- NOTE | 2021-02-24 11:00 | Anesthesiology Progress Note ---
Date of Service February 24, 2021 Anesthesia Post Procedure Vital Signs Vital Signs: Temp Pulse Pulse Pulse Resp BP BP 02/24/21 10:55 84 18 02/24/21 10:45 85 19 02/24/21 10:35 89 19 02/24/21 10:27 37 C 73 12 02/24/21 07:17 36.8 C 75 18 166/80 H 02/23/21 22:36 36.7 C 65 17 123/75 02/23/21 17:22 37.0 C 87 87 18 173/90 H 02/23/21 16:20 88 18 02/23/21 16:00 90 23 02/23/21 15:30 89 17 156/72 H 02/23/21 15:00 89 17 151/104 H 02/23/21 14:46 89 23 02/23/21 14:33 90 20 169/81 H 02/23/21 13:47 88 18 02/23/21 11:42 36.8 C 87 18 177/80 H BP Pulse Ox 02/24/21 10:55 132/89 99 02/24/21 10:45 150/89 H 98 02/24/21 10:35 147/87 H 99 02/24/21 10:27 119/66 97 02/24/21 07:17 96 02/23/21 22:36 96 02/23/21 17:22 98 02/23/21 16:20 98 02/23/21 16:00 02/23/21 15:30 02/23/21 15:00 02/23/21 14:46 02/23/21 14:33 02/23/21 13:47 98 02/23/21 11:42 96 Pain Intensity Right Ankle: Pain Intensity: 1 Transfer of Care Handoff Completed per policy Notes Mental Status: alert / awake / arousable Patient Amnestic to Procedure: Yes Nausea / Vomiting: adequately controlled Pain: adequately controlled Airway Patency, RR, SpO2: stable & adequate BP & HR: stable & adequate Hydration State: stable & adequate Anesthetic Complications: no major complications apparent and Pt Satisfied with anesthetic care
--- NOTE | 2021-02-24 14:22 | Hospitalist Progress Note ---
Date of Service February 24, 2021 Assessment & Plan (1) Fracture tibia/fibula: Mechanical fall with a tib-fib fracture in the right. Orthopedics, Dr. Michaud, performed internal fixation right tibia fracture 02/24/2021 Preoperative Covid test is negative (2) Hypertension: Patient typically takes lisinopril 40 mg a day for hypertension. Did reduce this dose to 50% postop day 1 returning to typical dose postop day 2 (3) Thyroid dysfunction: Patient Synthroid 75 mcg will be continued at this point time TSH is normal (4) Psoriasis: Patient typically takes Skirizi for psoriasis this will be held (5) DVT prophylaxis: Surgery prefers postop DVT prevention with aspirin 81 twice daily Admission and Anticipated Discharge Date Admission Date: February 23, 2021 Subjective Patient was seen postoperatively where she went up her index internal fixation of the right tibia fracture. She had good distal strength and sensation to her foot. She is still slightly groggy from anesthesia. She has no other compla ints or problems. Review of Systems Review of Systems: Mild distress and fatigue no headache, blurry or double vision no speech or swallowing issues no chest pain, pressure or palpitations no shortness of breath, cough or wheezes no abdominal pain, nausea or vomiting, diarrhea or constipation no dysuria, hematuria or frequency Distal right lower extremity swelling and some discomfort splint is in place no back pain, CVA tenderness or radicular pain no bruising, bleeding or rashes distal right foot is good capillary refill this morning no focal signs of weakness or numbness or altered sensation pacifically her foot is intact with sensation no complaints of anxiety or depression.. Physical Exam Physical Exam: The patient appeared well nourished and normally developed. Vital signs as documented. Head exam is normocephalic atraumatic Neck is without JVD, thyromegaly, or carotid bruits. Lungs are clear to auscultation, no focal loss of breath sounds Cardiac exam, Rhythm is regular.. No murmurs, rubs or gallops. Abdominal exam reveals normal bowel sounds, soft non tender, no masses Right lower extremity has a posterior splint in place with Jey wrap ice is also in place Neurologic exam is alert and oriented, no focal loss of strength or sensation typically she can feel and move her toes on the right foot which are the only thing that is easily seen with her postoperative dressing Psychologically is without concerns for anxiety or depression Results & Data Results & Data ([facility]) Vital Signs (Past 12 Hours) Vital Signs Temp Pulse Pulse Resp BP BP Pulse Ox 02/24/21 13:11 98.2 F 84 18 146/79 H 91 02/24/21 11:41 97.9 F 83 16 150/80 H 02/24/21 10:55 84 18 132/89 99 02/24/21 10:45 85 19 150/89 H 98 02/24/21 10:35 89 19 147/87 H 99 02/24/21 10:27 98.6 F 73 12 119/66 97 02/24/21 07:17 98.2 F 75 18 166/80 H 96 PG Care Time/CCT Total # of Minutes Spent Total Time Spent with Patient: Total time spent is greater than 50% in coordination of care (as documented) at patient's floor/unit and/or counseling patient: Coding Level of Care Code 44429 Subseq Hosp Care Lvl 2 Diagnoses Fracture tibia/fibula S82.209A; S82.409A Hypertension I10 Thyroid dysfunction E07.9 Psoriasis L40.9 DVT prophylaxis Z29.9
[2021-02-24] MEDS: ceFAZolin 1000MG 1,000 MG/7.5 ML SYR IV SCH (16:51)
[2021-02-24] MEDS: DOCUSATE SODIUM 100 MG CAP PO SCH (20:53)
[2021-02-24] MEDS: ASPIRIN 81 MG ECTAB PO SCH (20:53)
[2021-02-24] MEDS ORDERED: SENNA 8.6 MG TAB PO SCH (21:00)
[2021-02-25] MEDS: ceFAZolin 1000MG 1,000 MG/7.5 ML SYR IV SCH (00:29)
[2021-02-25] MEDS: KETOROLAC TROMETHAMINE 15 MG/ML VIAL IV SCH ×3 (00:29→12:27)
[2021-02-25] MEDS: LEVOTHYROXINE SODIUM 75 MCG TABLET PO SCH (05:42)
[2021-02-25 07:18] LABS: Hematocrit (blood only) 34.3 % (37-47); Hemoglobin 12.1 g/dL (12.0-16.0); Mean Corpuscular Hemoglobin 34.1 pg (25-34); Mean Corpuscular Hgb Conc 35.3 g/dL (32-36); Mean Corpuscular Volume 96.6 fL (80-100); Mean Platelet Volume 9.4 fL (7.4-10.4); Platelet Count 263 K/uL (130-400); RDW Coefficient of Variation 12.1 % (11.5-14.5); RDW Standard Deviation 43.1 fL (36.4-46.3); Red Blood Count 3.55 M/uL (4.2-5.4); White Blood Count 10.96 K/uL (4.8-10.8)
[2021-02-25 07:44] LABS: Calcium 8.3 mg/dl (8.5-10.1); Creatinine Clr Calc Pharmacy 91.8 ml/min; Est GFR (African American) 112.3 ml/min; Est GFR (Non-African American) 96.9 ml/min; Potassium 3.9 mmol/L (3.5-5.1)
[2021-02-25] MEDS ORDERED: MULTIVITAMIN TAB PO SCH (09:00)
[2021-02-25] MEDS ORDERED: lisinopril 40 MG TAB PO SCH (09:00)
[2021-02-25] MEDS: ASPIRIN 81 MG ECTAB PO SCH (10:04)
[2021-02-25] MEDS: DOCUSATE SODIUM 100 MG CAP PO SCH (10:04)
--- NOTE | 2021-02-25 11:42 | Progress Notes ---
DATE: 02/25/2021 SUBJECTIVE: A 70-year-old white female postoperative day 1 from ORIF of right distal tibia fracture. She is doing well. Really has not had much pain. No chest pain or shortness of breath. Not feeling dizzy or lightheaded. OBJECTIVE: VITAL SIGNS: Temperature 36.7. Vital signs stable. GENERAL: Shows a pleasant, middle-aged female. She is sitting up in bed, looks comfortable this morning. LUNGS: Clear to auscultation. HEART: Has a regular rate and rhythm. ABDOMEN: Soft, nontender, nondistended. EXTREMITIES: Grossly neurovascularly intact except as follows. Examination of the right leg reveals the leg to be well aligned. Dressing is clean, dry and intact. Toes are pink with brisk refill. She can flex and extend her toes without any significant pain. LABORATORY DATA: Hemoglobin 12.1. Hematocrit 34.3. Electrolytes are stable. ASSESSMENT: A 70-year-old white female postop day 1 from ORIF of right distal tibia fracture, doing well. Pain is controlled. She is neurologically intact. PLAN: 1. DVT prophylaxis including thigh-high TEDs, SCDs, and aspirin twice a day. 2. PT/OT. She is nonweightbearing in the right leg for the next 6 weeks. 3. Wound care. We will keep this dressing on for the next 2 weeks to see her back in 2 weeks for suture removal. 4. Disposition: We will plan on discharging her today.
--- NOTE | 2021-02-25 12:14 | Discharge Summary ---
Date of Service February 25, 2021 Admission HPI Per Admitting Provider Ms. Florez is a 70-year female who presents the emergency department after an ankle injury at home. Patient states she had gotten food and water for her cats, and some of the water spilled outside the dish and she slipped on the water and fell, landing awkwardly on her right lower extremity. Patient denies any prior injury to the right knee, tib/fib, or ankle. Patient states she was feeling in her usual state of health prior to this, no preceding or prodromal symptoms to suggest near syncope or syncope. Patient states when she fell she did not hit her head or lose consciousness. Patient states she crawled to the door and called 911. Patient denies any numbness or tingling, denies any neck pain, back pain, or hip pain. Patient denies any concern for additional injury other than that to her right lower extremity. Patient does not use any antiplatelet or anticoagulation therapy. Patient has tib-fib fracture of right lower extremity. Orthopedics was consulted emergency department recommended to be kept in the facility for surgical correction. Admission Exam Per Admitting Provider The patient appeared well nourished and normally developed. Vital signs as documented. Head exam is normocephalic atraumatic Neck is without JVD, thyromegaly, or carotid bruits. Lungs are clear to auscultation, no focal loss of breath sounds Cardiac exam, Rhythm is regular.. No murmurs, rubs or gallops. Abdominal exam reveals normal bowel sounds, soft non tender, no masses Lower extremity deformity distal pulses sensation intact she has got some swelling and ecchymosis Neurologic exam is alert and oriented, no focal loss of strength or sensation Skin is without bruises or rashes Psychologically is without concerns for anxiety or depression. Principal Diagnosis Right Tibia-Fibula Fracture s/p ORIF 02/24/21. Discharge Exam GENERAL: Patient in no acute distress. HEENT: Head is atraumatic, normocephalic. EOM's intact. Facies symmetric. No perioral cyanosis. NECK: No JVD. JVP is at the level of the clavicle sitting upright. Carotid upstrokes are + 2 bilaterally. No bruits are noted. CHEST/LUNGS: Clear to auscultation throughout all lung rai. No wheezes, rales, or crackles. CVS: S1 and S2 are regular without murmurs, gallops, or rubs. PMI is nondisplaced. No lifts, heaves, or thrills. No abdominal aortic or renal bruits. ABDOMINAL EXAM: Bowel sounds are present. No masses, organomegaly, or tendern ess. EXTREMITIES: No clubbing or cyanosis. No edema. Intact radial pulses bilaterally. Right leg and foot are casted, right toes flex and extend, good capillary refill. NEUROLOGIC EXAM: Patient is awake, alert, and oriented. Pleasant and cooperative. Answers questions appropriately. Speech is clear. Discharge Data Allergies Allergy/AdvReac Type Severity Reaction Status Date / Time amlodipine [From [facility]] Allergy Unknown Verified 02/23/21 18:37 Sulfa (Sulfonamide Allergy Unknown Verified 02/23/21 18:36 Antibiotics) Consultations 02/23/21 14:43 ED Decision to Admit Stat 02/23/21 14:44 Consult Orthopedic Surgery Stat 02/23/21 17:13 Consult Orthopedic Surgery Routine Procedures Performed Operation Date: 02/24/21 08:00 Actual Procedures p Open Reduction Internal Fixation Right Tibia Fracture(Right) - Amado Michaud MD Ordered Studies 02/24/21 [place] ankle RT 2V Routine Hospital Course (1) Fracture tibia/fibula: -- Mechanical fall with a tib-fib fracture in the right. -- Orthopedics, Dr. Michaud, performed internal fixation right tibia fracture 02/24/2021. -- Preoperative Covid test was negative. (2) Hypertension: -- Continue Lisinopril 40 mg a day for hypertension. (3) Thyroid dysfunction: -- Synthroid 75 mcg daily (4) Psoriasis: -- Continue Skyrizi for psoriasis. (5) DVT prophylaxis: -- Continue Aspirin 81 twice daily x 4 weeks. Total Time Total Time Spent Total Time Spent (In Minutes): 30 Discharge Plan Discharge Items Patient Disposition: Home - Self-Care Reason For Visit: RIGHT RIB FIB FRACTURE, HTN, HYPOTHYOIDISM Discharge Diagnosis: Right Tibia/Fibula fracture Activity: Per Instructions section Activity Comment: Non-weightbearing right leg Weightbearing: Right non-weightbearing Non-emergency contact: Surgeon Call non-emergency contact if: you have any medication questions Follow-up/Referrals: Amado Michaud MD [Physician] - 03/14/21 3:00 pm () Jai Curry MD [Primary Care Provider] - Diet: Regular Addtl Attending Provider Instructions: Keep splint and dressing clean, dry, and in place until return to clinic a ppointment Keep all pressure off your heel at all times. Pending Studies at Discharge: No Stand-Alone Forms: My [facility], Opioid Pain Management, Smoking Cessation Medications and DC Order Prescriptions: New aspirin 81 mg Tablet,Delayed Release (Dr/Ec) 81 mg PO BID 30 Days Qty: 60 RF: 0 oxycodone 5 mg Tablet 5 mg PO Q6H PRN (Reason: pain) Qty: 30 RF: 0 acetaminophen [Tylenol Extra Strength] 500 mg tablet 1,000 mg PO TID 30 Days Qty: 180 RF: 0 Continued levothyroxine 75 mcg tablet 75 mcg PO DAILY RF: 0 lisinopril 40 mg tablet 40 mg PO DAILY RF: 0 Skyrizi 150mg/1.66mL(75 mg/0.83 mL x2) syringe kit 75 mg SUBCUT DIRECTED RF: 0 Discharge Orders: Discharge Order (Routine); Ordered 02/25/21 Ordered By: Amado Fragoso/Other Patient Handouts: DVT Post Op Prevention, [facility] Admission Data Admit Date/Time: 02/23/21 15:59 Attending Provider: Daniel Brito Admit Provider: Dylan Dunn Primary Care Provider: Jai Curry Other Providers: Amado Michaud ; Daniel Brito ; [facility] Other Interventions: Discharge Summary Assessment (RN) Last Done: 02/25/21 11:11 Supervising Physician Co-Signing Physician Notes I supervised Boni Kidd on this discharge, but did not see the patient prior to her leaving the hospital. Coding Level of Care Code D/C Day Management <30 mins Diagnoses Fracture tibia/fibula S82.209A; S82.409A Hypertension I10 Thyroid dysfunction E07.9 Psoriasis L40.9 DVT prophylaxis Z29.9 Time Spent (min) 30
[2021-02-27 06:57] LABS: Albumin 3.2 g/dL (3.8-4.8); Alpha 1 Globulin 0.3 g/dL (0.2-0.3); Alpha 2 Globulin 0.7 g/dL (0.5-0.9); Beta-1-Globulin 0.4 g/dL (0.4-0.6); Beta-2-Globulin 0.3 g/dL (0.2-0.5); Gamma Globulin 1.2 g/dL (0.8-1.7); Monoclonal Protein Band 1 DNR g/dL (NONE DETECTED); Monoclonal Protein Band 2 DNR g/dL (NONE DETECTED); Monoclonal Protein Band 3 DNR g/dL (NONE DETECTED); Total Protein 6.1 g/dL (6.1-8.1)
== END 2021-02-25 15:51 | disposition home health service (06) | DRG 494 ==
LOC: ED 11:38 → 3N 15:59 → SUATTDRO 15:59 → 3N 16:42